=== PATIENT | male | born 1995 ===

== ENCOUNTER 2017-07-29 16:49 | Emergency (ER) | payer SELFPAY ==
[2017-07-29] MEDS ORDERED: Lidocaine 2% PF * 5 ML VIAL INJ ONE (17:07)
--- NOTE | 2017-07-29 17:07 | UC ---
Laceration HPI - HPI Summary HPI Summary: 22 yo WM presents with laceration to left index finger while slicing a bagel about 30min [employer]. His last tetanus was about 2 years ago. - History Of Current Complaint Chief Complaint: UCLaceration Stated Complaint: FINGER LACERATION Time Seen by Provider: 07/29/17 17:06 Hx Obtained From: Patient Laceration Location: Finger Onset/Duration: Sudden Onset Severity: Mild Pain Intensity: 2 Pain Scale Used: 0-10 Numeric - Allergies/Home Medications Allergies/Adverse Reactions: Allergies Allergy/AdvReac Type Severity Reaction Status Date / Time No Known Allergies Allergy Verified 07/29/17 16:54 Home Medications: Home Medications NK [No Home Medications Reported] 07/29/17 [History Confirmed 07/29/17] PMH/Surg Hx/FS Hx/Imm Hx Previously Healthy: Yes - Surgical History Surgical History: None - Family History Known Family History: Positive: None - Social History Occupation: Student Lives: Alone Alcohol Use: Weekly Substance Use Type: None Smoking Status (MU): Never Smoked Tobacco Review of Systems Constitutional: Negative Skin: Other - 5mm laceration to left index finger Respiratory: Negative Cardiovascular: Negative Musculoskeletal: Negative Neurological: Negative Psychological: Negative All Other Systems Reviewed And Are Negative: Yes Physical Exam Triage Information Reviewed: Yes Appearance: Well-Appearing, No Pain Distress, Well-Nourished Vital Signs: Initial Vital Signs Temp 97.8 F 07/29/17 16:55 Pulse 63 07/29/17 16:55 Resp 16 07/29/17 16:55 BP 122/77 07/29/17 16:55 Pulse Ox 100 07/29/17 16:55 Neck: Positive: Supple, Nontender Respiratory: Positive: Lungs clear, Normal breath sounds, No respiratory distress Cardiovascular: Positive: RRR, No Murmur, Pulses Normal, Brisk Capillary Refill - Left distal index finger Neurological: Positive: Alert, Other: - Sensations intact left hand and all fingers Psychological: Positive: Age Appropriate Behavior Skin: Positive: Other - 5mm superficial linear laceration to left index finger pad. No tendon involvement. Bleeding stopped with direct pressure. Laceration Repair - Laceration Repair 1 Description: Linear Laceration Size After Repair: Length (cm) - 0.5 Modified For Repair: No Irrigation With Pressure Irrigation Device: Yes Closure Material: Skin Adhesive Laceration Course/Dx - Course/Dx Course Of Treatment: 5mm linear laceration to left index finger. Very superficial and with good approximation at rest. Dermabond applied and dressed with telfa. - Differential Dx - Laceration/Wound Provider Diagnoses: 5mm linear laceration to left index finger Discharge - Discharge Plan Condition: Stable Disposition: HOME Patient Education Materials: Skin Adhesive Care (ED) Referrals: No Primary Care Phys,NOPCP [Primary Care Provider] - Additional Instructions: If you develop a fever, shortness of breath, chest pain, new or worsening symptoms - please call your PCP or go to the ED.
== END 2017-07-29 17:45 | disposition home or self-care (01) ==
LOC: UCEAST 16:49
DX: S61.211A Laceration without foreign body of left index finger without damage to nail, initial encounter (principal); W26.0XXA Contact with knife, initial encounter; Y93.G1 Activity, food preparation and clean up; Y92.9 Unspecified place or not applicable
CPT/HCPCS: 12001; 99201; G0463